=== PATIENT | female | born 1970 | race Caucasian/White ===

== ENCOUNTER → 2018-05-07 | Day surgery (SDC) | payer OTHER ==
[~2018-05-07] VITALS: Ht 154.9 cm; Wt 72.6 kg
[~2018-05-07] MED LIST: ACCUPRIL10 MG PO; ACULAR 3ML 3 ML5 ML OPH; BENADRYL25 MG PO; BUSPAR5 MG PO; EPIPEN 2-PAK1 MG/ML MR; HYDROCODONE BIT1 T11 PO; LISINOPRIL2.5 MG PO; MEDROL DOSEPAK4 MG PO; MULTIPLE VITAM1 EACH PO; PERCOCET 325 MG1 TA2 PO; PREDNISONE10 MG PO; PREMARIN0.45 MG PO; PREMARIN0.625 MG PO; PROZAC40 M1 PO; SYNTHROID0.025 MG PO; Synthroid,Lev125 MCG PO; TOBRAMYCIN 5 ML5 M2 OPH; VICODIN 500 MG-1 TAB PO; ZOFRAN8 MG PO
--- NOTE | ~2018-05-07 | PROC NOTE ---
[place], [place] PROCEDURE NOTE [id number] UNIT #: [id number] ROOM: DOCTOR: PAULA CABAN MD BIRTHDATE: [birth year] DOS: 05/07/2018 PREOPERATIVE DIAGNOSIS: Screening examination. POSTOPERATIVE DIAGNOSIS: Screening examination. PROCEDURE: Colonoscopy. ENDOSCOPIST: Paula Caban MD RESIDENTIAL LIFE DIRECTOR: RANDALL. ANESTHESIA: MAC. INDICATIONS: This is a 48-year-old lady here for a screening examination. The procedure and its complications were explained to the patient in detail preoperatively. Complications that were discussed included but were not limited to, bleeding, colon perforation, and missed lesions. She agreed to proceed. DESCRIPTION OF PROCEDURE: After identifying the patient, the patient was brought to the endoscopy suite and placed in the left lateral position. After IV sedation was administered, a timeout procedure was called and a digital rectal exam was performed, which was within normal limits. An adult colonoscope was now introduced into the anal canal and advanced sequentially into the rectum, sigmoid colon, descending colon, transverse colon and ascending colon up to the cecum. Upon reaching the cecum, the scope was withdrawn. Total withdrawal time was approximately 7 minutes. There were no obvious abnormalities seen in the entirety of the colon except mild sigmoid diverticulosis. After the scope was withdrawn, the patient was brought back to the recovery room in stable fashion. Based on these findings, the patient is recommended to have another colonoscopy in 10 years or sooner if she had new symptoms. These findings were discussed with the patient's family in the recovery room. Paula aCban MD CM:PROCNOTE:PROCEDURE NOTE [id number] PAULA CABAN MD
[2018-05-07 09:00] VITALS: BP 125/74
[2018-05-07 10:14] VITALS: BP 96/53
[2018-05-07 10:29] VITALS: BP 102/59
[2018-05-07 10:51] VITALS: BP 108/80
== END | disposition home or self-care (01) ==
LOC: SDC 05-04 12:30
DX: Z12.11 Encounter for screening for malignant neoplasm of colon (principal); K57.30 Diverticulosis of large intestine without perforation or abscess without bleeding; I10 Essential (primary) hypertension; E03.9 Hypothyroidism, unspecified; F41.9 Anxiety disorder, unspecified; Z98.890 Other specified postprocedural states; Z79.899 Other long term (current) drug therapy; Z90.49 Acquired absence of other specified parts of digestive tract; Z98.51 Tubal ligation status; Z90.710 Acquired absence of both cervix and uterus; Z98.0 Intestinal bypass and anastomosis status; Z88.0 Allergy status to penicillin

== ENCOUNTER 2019-03-22 18:57 | Emergency (ER) | payer BC ==
[~2019-03-22] VITALS: Ht 154.9 cm; Wt 74.8 kg
[2019-03-22 18:58] VITALS: BP 175/91
== END 2019-03-22 20:37 | disposition home or self-care (01) ==
LOC: ED 18:57
DX: S66.911A Strain of unspecified muscle, fascia and tendon at wrist and hand level, right hand, initial encounter (principal); S80.212A Abrasion, left knee, initial encounter; M25.571 Pain in right ankle and joints of right foot; Z88.0 Allergy status to penicillin; Z79.899 Other long term (current) drug therapy; W01.0XXA Fall on same level from slipping, tripping and stumbling without subsequent striking against object, initial encounter; Y93.89 Activity, other specified; Y92.89 Other specified places as the place of occurrence of the external cause; Y99.8 Other external cause status

== ENCOUNTER → 2025-07-26 | Outpatient (CLI) | payer BC ==
[2025-07-26 10:21] LABS: FREE T4 1.25 ng/dl (0.89-1.76)
== END | disposition home or self-care (01) ==
LOC: LAB 09:12
PROVIDERS: Student in an Organized Health Care Education/Training Program; ATTEND Internal Medicine Endocrinology, Diabetes & Metabolism
DX: E03.9 Hypothyroidism, unspecified (principal)